=== PATIENT | male | born 1990 | race African-American/Black ===

== ENCOUNTER 2021-02-01 18:28 | Emergency (ER) | payer OTHER ==
[2021-02-01 19:49] VITALS: BP 130/87; PULSE 68; TEMP 98; BMI 29.8
[2021-02-01] MEDS ORDERED: DIPHTH,PERTUSS(ACELL),TET VAC 0.5 ML VIAL IM ONE (20:16)
[2021-02-01] MEDS ORDERED: AMOX TR/POT CLAV 875MG/125MG TABLETS (FP) PO ONE (20:16)
[2021-02-01] MEDS ORDERED: AMOX TR/POT CLAV 875MG/125MG TABLETS (FP) ONE (21:04)
[2021-02-01] MEDS ORDERED: DIPHTH,PERTUSS(ACELL),TET 0.5 ML DISP.SYRIN IM ONE (21:05)
[2021-02-01] MEDS ORDERED: BACITRACIN 15 GM TUBE TOPICAL OINTMENT ONE (21:37)
== END 2021-02-01 22:26 | disposition home or self-care (01) ==
LOC: JER 18:28 → JERFT 18:28
PROC: 3E0234Z Introduction of Serum, Toxoid and Vaccine into Muscle, Percutaneous Approach (ICD-10-PCS; principal; 2021-02-01)
DX: S41.152A Open bite of left upper arm, initial encounter (principal); W54.0XXA Bitten by dog, initial encounter
CPT/HCPCS: 73090-TC-LT-FY; 99284-25

== ENCOUNTER 2021-02-03 13:07 | Emergency (ER) | payer OTHER ==
[2021-02-03 13:31] VITALS: BP 138/78; PULSE 80; TEMP 98.2; BMI 27.6
[2021-02-03] MEDS ORDERED: RABIES IMMUNE GLOBULIN 300 UNITS/1 ML VIAL IM ONE (14:32)
[2021-02-03] MEDS ORDERED: RABIES VACCINE (PCEC)/PF 2.5 UNIT/VIAL IM ONE ×2 (14:32→14:46)
== END 2021-02-03 15:34 | disposition home or self-care (01) ==
LOC: JERFT 13:07
PROC: 3E023GC Introduction of Other Therapeutic Substance into Muscle, Percutaneous Approach (ICD-10-PCS; principal; 2021-02-03)
DX: S51.852A Open bite of left forearm, initial encounter (principal); W54.0XXA Bitten by dog, initial encounter
CPT/HCPCS: 90375; 90675; 99284-25